=== PATIENT | male | born 1960 | race Caucasian/White ===

== ENCOUNTER → 2020-02-19 15:38 | Outpatient (BNVA) | payer MEDICARE, MEDICAID, SELFPAY | PROVIDERS: Family Provider Nurse Practitioner Family; PCP Nurse Practitioner Family; Visit Provider Nurse Practitioner Family | DX: I10 Essential (primary) hypertension (principal); E78.5 Hyperlipidemia, unspecified; E03.8 Other specified hypothyroidism; F41.9 Anxiety disorder, unspecified; F32.9 Major depressive disorder, single episode, unspecified; R11.0 Nausea; K21.0 Gastro-esophageal reflux disease with esophagitis; J44.9 Chronic obstructive pulmonary disease, unspecified; F17.200 Nicotine dependence, unspecified, uncomplicated; M51.36 Other intervertebral disc degeneration, lumbar region; R35.0 Frequency of micturition; B18.2 Chronic viral hepatitis C | CPT/HCPCS: 80053; 80061; 84443; 85025 ==

== ENCOUNTER → 2022-04-27 14:20 | Outpatient (BNVA) | payer MEDICARE, MEDICAID, SELFPAY | PROVIDERS: Family Provider Nurse Practitioner Family; PCP Nurse Practitioner Family; Visit Provider Internal Medicine Cardiovascular Disease | DX: Z95.0 Presence of cardiac pacemaker (principal); I10 Essential (primary) hypertension; B18.2 Chronic viral hepatitis C; J44.9 Chronic obstructive pulmonary disease, unspecified; I25.118 Atherosclerotic heart disease of native coronary artery with other forms of angina pectoris; R00.1 Bradycardia, unspecified; F17.210 Nicotine dependence, cigarettes, uncomplicated | CPT/HCPCS: 36415; 80048; 85610; 86850; 86900; 93005; 99204 ==

== ENCOUNTER 2022-04-30 05:47 | Outpatient (CLI) | payer MEDICARE, MEDICAID, SELFPAY ==
[2022-04-30] VITALS (7 sets, daily range): BP systolic 124–135; BP diastolic 72–94; PULSE 60–69; RESP 16–20; TEMP 36.7–37.3; O2SAT 96–97; BMI 18.9
[2022-04-30 06:45] LABS: Basophils % 0.9 %; Eosinophils % 0.6 %; Hematocrit 43.5 % (42.0-52.0); Hemoglobin 14.3 g/dL (11.7-16.6); Lymphocytes # 1.8 10^3/uL (0.8-4.8); Lymphocytes % 56.2 %; Mean Corpuscular HGB Conc 32.9 g/dL (30.0-36.0); Mean Corpuscular Hemoglobin 32.9 pg (28.0-34.0); Mean Platelet Volume 11.4 fL (7.4-10.4); Monocytes # 0.5 10^3/uL (0.2-0.9); Monocytes % 16.8 %; Neutrophils % 25.5 %; Nucleated Red Blood Cells % 0 %; Platelet Count 65 10^3/cmm (130-400); Red Blood Count 4.35 10^6/uL (4.1-5.3); Red Cell Distribution Width 14.2 % (12.1-15.1); White Blood Count 3.2 10^3/uL (4.0-10.0)
--- NOTE | 2022-04-30 07:12 | W.PM.OPSUD ---
Surgery/Procedure H&P Update DATE OF PROCEDURE: April 30, 2022 DATE H&P PERFORMED: 04/27/22 H&P UPDATE INFORMATION: I have reviewed H&P completed within last 30 days, I have examined patient prior to procedure and No changes to prior documentation PREOP DIAGNOSIS: Pacemaker DEVEN PRIMARY INDICATION FOR PROCEDURE: bradycardia/ SSS / DEVEN PLANNED PROCEDURE: Operation Date: 04/30/22 07:00 Proposed Procedures p Pacemaker generator exchange [id number],Z45.010(Not Applicable) - Irma Adams MD AIRWAY EVAL/ANESTHESIA PLAN: normal airway, see other exam findings, ASA II, Monitored Anesthesia, Local Anesthesia, Risks, benefits & alternatives of sedation and/or procedure discussed and Patient agrees to continue as planned
[2022-04-30 07:17] LABS: Neutrophils # 0.82 10^3/uL (1.8-7.7)
--- NOTE | 2022-04-30 08:23 | PM.OP ---
Operative Report Date of procedure: April 30, 2022 Pre-op diagnosis: Preop Diagnosis Pacemaker DEVEN Procedure: PROCEDURE: PACEMAKER REVISION PREOPERATIVE DIAGNOSIS: Pacemaker elective replacement indication. POSTOPERATIVE DIAGNOSIS: Pacemaker elective replacement indication. ESTIMATED BLOOD LOSS: None COMPLICATIONS: None. BRIEF HISTORY: The patient is 61-year-old white male who had a permanent pacemaker implantation for sick sinus syndrome. The patient was found to be bradycardic with battery depletion, during routine office followup evaluation. Apparently the pacemaker has not been checked for the last 4 years or more. For further management of patient's condition for the symptomatic bradycardia, the patient required a pacemaker revision. Patient required a dual-chamber pacemaker for symptom relief and the need for AV synchrony The procedure was explained to the patient in detail with the risks and benefits. The risks of bleeding, hematoma, vascular injury, infection and other concomitant complications were explained in detail, which the patient understood well and consented to proceed. PROCEDURES PERFORMED: 1. Explantation of the old pacemaker generator. 2. Implantation of the new generator. The patient brought to the Cardiac Receiving Team Member. The left side of the neck and the subclavian area were cleaned and draped in a sterile fashion. 1% Xylocaine was used for local anesthetic agent. A 2 inch long incision was made just below the previous pacemaker scar. By sharp and blunt dissection, the pacemaker pocket was accessed. The old generator was delivered from the pocket. The generator was detached from the lead. The new Medtronic generator was attached to the lead. The pacemaker pocket was copiously irrigated with vancomycin solution. Complete hemostasis was achieved. The lead was positioned behind the generator and the generator was attached to the pectoralis fascia by suturing with 0 Surgilon. Sponge counts were confirmed. The pacemaker pocket was closed in layers. Skin was approximated using 4-0 Vicryl. EXPLANTED DEVICE: Pacemaker Generator: Brand: Basilio ESQUIVEL DR. Model number: [id number] Serial number: [id number]. Date of implant: 02/25/2009 Make: St Dat IMPLANTED DEVICES: Ventricular Lead: Date of implantation: 02/25/2009 Model number: [id number]/[id number] Serial number: [id number] make: St Dat Atrial lead Date of implantation: 02/25/2009 Model number: [id number]/46 Serial number: [id number] Make: St Dat Implanted Generator: Date of implantation : 04/30/2022 Brand: Sierra Sigala. Model number: [id number] Serial number: [id number] Make: Medtronic Stimulation Threshold: With a PSA. The ventricular sensing was 11 millivolts. Ventricular lead impedance was 418 ohms and the pacing threshold was 1.3 volts at 0.4 milliseconds. The atrial sensing was 2.7 millivolts. Atrial lead impedance was 437 ohms and the pacing threshold was 0.8 volts at 0.4 milliseconds. Through the device, the ventricular sensing was 10.6 and atrial sensing of 2.1V. The lead impedance in the ventricle was 418 and that in the atrium was 418 ohms. The capture threshold was 1.0 in the atrium and 1.25 in the ventricle, at a pulse width of 0.4 ms The pacemaker was set for AAIR/DDDR mode with an upper rate of 130 and a lower rate of 60. A pressure dressing was applied over the pacemaker site. The patient was transferred back to medical floor in stable condition. Sponge counts were correct.
[2022-04-30] MEDS: HYDROcodone-acetaminophen 5-325 mg Tablet 1 TAB PO ×5 (09:31→22:02)
[2022-04-30] MEDS: sodium chloride 0.9% 1,000 ML 75 ML IV ×2 (11:56→22:03)
[2022-04-30] MEDS: ceFAZolin 2,000 MG in sodium chloride 0.9% (plus) 50 ML 100 MG IV ×2 (14:15→22:03)
--- NOTE | 2022-04-30 20:18 | PC.NURSE ---
Patient very upset, angry, agtitated and threatening to leave ama due to lack of pain control. Called Dr Adams to inform him and received telephone orders as placed. Patient spoke with doctor as well over the phone and doctor came to see him.
[2022-04-30] MEDS: ALPRAZolam 0.5 mg Tablet 0.25 MG PO (20:22)
--- NOTE | 2022-04-30 23:20 | PC.NURSE ---
Patient resting at this time. Patient more relaxed, cooperative and pleasant.
[2022-05-01] VITALS (7 sets, daily range): BP systolic 100–108; BP diastolic 65–72; PULSE 60–62; RESP 16–20; TEMP 36.6–36.7; O2SAT 95–96
[2022-05-01] MEDS: ALPRAZolam 0.5 mg Tablet 0.25 MG PO ×2 (02:04→08:12)
[2022-05-01] MEDS: HYDROcodone-acetaminophen 5-325 mg Tablet 1 TAB PO ×2 (02:04→05:36)
[2022-05-01] MEDS: ceFAZolin 2,000 MG in sodium chloride 0.9% (plus) 50 ML 100 MG IV (05:36)
--- NOTE | 2022-05-01 06:00 | ECG_ITS ---
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 Measurements Intervals Cinebar Rate: 59 P: 149 KS: 202 QRS: 64 QRSD: 77 T: 72 QT: 429 QTc: 428 Interpretive Statements ELECTRONIC ATRIAL PACEMAKER ABNORMAL RHYTHM ECG Compared to ECG 01/17/2018 08:14:34 No significant changes Electronically Signed On 05-01-2022 15:53:51 CDT by Irma Adams M.D. [id number]
--- NOTE | 2022-05-01 10:06 | PC.CHAP ---
Pastoral Care Encounter/Spiritual Assessment Type of Contact [] Declined digital marketing executive visit [] Patient/Family/Request visit [] Outpatient visit [] Follow-up visit [] Physician referral [] Code/Alert [x] Routine visit [] Staff referral [] Actively dying [] Patient sleeping [] Family support [] [] Out of room [] Palliative care [] [] Receiving care in room [] Pre-surgical visit [] Trauma [] Long length of stay [] ICU visit [] Other: Relational/Emotional Strength [] Patient feels connected with others/family/visitors/staff [] Distress [] Loneliness/isolation [] Abandonment Spirituality of Patient [x] Person of Vicenta [] Attends Catholic of their [place] [x] Believes in Prayer [] Reads Bible or Denominational materials [] There are Spiritual issues to be addressed Review Scheduling Coordinator Interventions [x] Prayer [x] Active listening [] Non-anxious presence [] Spiritual/emotional support [] Crisis/trauma care [x] Spiritual counseling [] Bereavement support [] Provided bereavement packet [] Provided Bible/devotional materials [] Provided toy/stuffed animal, coloring book to patient or family member [] Provided Communion [] Anointing/[place] [] Salvation [x] Completed spiritual assessment [] Other: Impact on Illness or Injury [x] Angry [] Fearful [] Anxious [] Often cries [] Exhaustion [] Unable to work [] Unable to attend lutheran [] Unable to walk/stand [] Unable to read [] Unable to drive [] Unable to eat/drink [] Unable to sleep [] Unable to be with family [] Patient intubated [] Other: Summary patient in pain Time spent with patient 10 min
--- NOTE | 2022-05-01 10:15 | PC.NURSE ---
I went in to perform the discharge education and assessment with patient and he had a written Rx from Dr. Adams for Hydrocodone-APAP. The patient asked if we could give it to our pharmacy and have them fill it before he goes home. I took the Rx as well as the patient's insurance card to the [facility] Outpatient pharmacy to be filled and they will bring it up Meds to Beds after it is filled. I came back and reviewed d/c information with patient and provided education on pacemaker post-op precautions, s/s of complications/infection, Cephalexin, and Hydrocodone. I also instructed patient on the number to Med/Surg and to ask for Charge Nurse if he has any questions, concerns, or changes in his health status. I reviewed his follow up appointment with ANDRA Tompkins on 05/08 and highlighted their number for him if he has any further issues. He verbalizes understanding of all instructions and declines to have a family member/significant other present at this time. I assisted patient to get dressed and into the w/c and he was placed in the waiting room to wait for his family to arrive. Meds to Beds were delivered and patient left with family ambulating without assistance.
== END 2022-05-01 10:15 | disposition home or self-care (01) ==
LOC: CCL 05:48 → MEDSURG 05-01 08:47
PROVIDERS: PCP Nurse Practitioner Family; Visit Provider Internal Medicine Cardiovascular Disease
DX: Z45.018 Encounter for adjustment and management of other part of cardiac pacemaker (principal); I49.5 Sick sinus syndrome
CPT/HCPCS: 33213; 36415; 85025; 93005; 96360; 97165; 99152; 99153; C1769; C1786; J0690; J2250; J2270; J3010; J7030; J7050; L3670

== ENCOUNTER → 2022-05-08 09:28 | Outpatient (BNVA) | payer MEDICARE, MEDICAID, SELFPAY | PROVIDERS: PCP Nurse Practitioner Family; Visit Provider Nurse Practitioner Family | DX: Z95.0 Presence of cardiac pacemaker (principal); F17.200 Nicotine dependence, unspecified, uncomplicated | CPT/HCPCS: 93280; 99213; 99214 ==

== ENCOUNTER → 2022-06-03 11:00 | Outpatient (BNVA) | payer MEDICARE, MEDICAID, SELFPAY | PROVIDERS: PCP Nurse Practitioner Family; Visit Provider Internal Medicine Cardiovascular Disease | DX: Z95.0 Presence of cardiac pacemaker (principal); I25.118 Atherosclerotic heart disease of native coronary artery with other forms of angina pectoris; J44.9 Chronic obstructive pulmonary disease, unspecified; I10 Essential (primary) hypertension; Z87.891 Personal history of nicotine dependence | CPT/HCPCS: 99213; 99214 ==

== ENCOUNTER → 2022-07-08 11:58 | Outpatient (BNVA) | payer MEDICARE, MEDICAID, SELFPAY | PROVIDERS: PCP Nurse Practitioner Family; Visit Provider Nurse Practitioner Family | DX: B18.2 Chronic viral hepatitis C (principal); Z12.5 Encounter for screening for malignant neoplasm of prostate; E03.8 Other specified hypothyroidism; Z12.2 Encounter for screening for malignant neoplasm of respiratory organs; Z13.6 Encounter for screening for cardiovascular disorders; J44.9 Chronic obstructive pulmonary disease, unspecified; M51.36 Other intervertebral disc degeneration, lumbar region; R71.8 Other abnormality of red blood cells; R39.11 Hesitancy of micturition; E04.9 Nontoxic goiter, unspecified | CPT/HCPCS: 80053; 80061; 82607; 82746; 84443; 85025; 86705; 86706; 86709; 86803; 87340; 87522; 87902; G0103 ==

== ENCOUNTER → 2023-02-25 11:00 | Outpatient (BNVA) | payer MEDICARE, MEDICAID, SELFPAY | PROVIDERS: PCP Nurse Practitioner Family; Visit Provider Internal Medicine Cardiovascular Disease | DX: I25.118 Atherosclerotic heart disease of native coronary artery with other forms of angina pectoris (principal); Z95.0 Presence of cardiac pacemaker; J44.9 Chronic obstructive pulmonary disease, unspecified; I10 Essential (primary) hypertension; Z87.891 Personal history of nicotine dependence; Z79.82 Long term (current) use of aspirin | CPT/HCPCS: 99214 ==